=== PATIENT | female | born 1940 | race Caucasian/White ===

== ENCOUNTER 2020-07-28 12:22 | Observation (INO) ==
[2020-07-28] MEDS ORDERED: ONDANSETRON INJ 2 MG/ML 2 ML VIAL IV STA (12:36)
--- NOTE | 2020-07-28 12:38 | Emergency Department Note ---
Impression & Plan Vertigo, Acute hyperglycemia, Hypomagnesemia, Intractable nausea and vomiting ED Provider Note NAME: TRELL PRICE AGE: 80 SEX: F : 1940 ARRIVES VIA: Walk-In INFORMANT: Patient, the patient's friend ED PROVIDER(S): Chase Hess DO CHIEF COMPLAINT: Diplopia HPI: The patient is a 80-year-old female who is a type II diabetic as well as an oxygen requirement COPD patient who presented to the emergency department with diplopia. The patient states this began while she was driving approximately 1/2 to 1-hour prior to arrival. She denies having any fever. She has no chest pain. She denies having any headache. She is not been ill recently with fever. She denies having any abdominal pain but has significant nausea. She states initially the symptoms were worsened with opening her eyes and looking around. She states that the diplopia has since improved significantly. She is never had a history of stroke before. She denies having any ringing in her ears. She has had no recent trauma. She states her symptoms are moderately improved at this time. Her friend who is with her also gives some of the history and states that she was having significant difficulty walking when this occurred. She states that she was unable to walk without assistance. The patient herself describes bilateral weakness which is generalized. ROS: See above HPI for pertinent positives & negatives. A total of 10 systems reviewed and were otherwise negative. PAST MEDICAL HISTORY: See Below PAST SURGICAL HISTORY: See Below FAMILY HISTORY: See Below SOCIAL HISTORY: See Below HOME MEDICATIONS: See Below ALLERGIES: See Below VITALS: See Below PHYSICAL EXAMINATION: GENERAL: The patient is awake and alert. She is keeping her eyes closed. EYES: The conjunctivae are clear. The pupils are round and reactive. No nystagmus was elicited. EARS, NOSE, MOUTH AND THROAT: The nose is without any evidence of any deformity. There was mild cerumen impaction bilaterally. NECK: The neck is nontender and supple. RESPIRATORY: Diminished breath sounds are noted in the right lung field. There were scattered rhonchi in both upper lung bravo. There was no tachypnea or conversational dyspnea. CARDIOVASCULAR: Regular rate and rhythm noted there no murmurs rubs or gallops normal S1 normal S2. GASTROINTESTINAL: The abdomen is soft. Abdomen is nontender. MUSCULOSKELETAL/EXTREMITIES: There is no evidence of gross deformity full range of motion is noted in the hips and shoulders. SKIN: Trace pedal edema was noted bilaterally. NEUROLOGIC: Patient is awake alert and oriented x3. There was no facial droop noted. Speech was pressured but understandable. Patient is able to keep each leg off the bed for 5 seconds. Art History Professor strength was diminished but symmetric. MEDICAL DECISION MAKING: The patient is a 80-year-old female who presented to the emergency department with an acute onset of nausea and weakness. The patient complained of dizziness and appeared to be complaining of more vertigo symptoms. Because of her age and comorbidities further testing was obtained to ensure this was not a central nervous system cause for her vertigo. She initially complained of diplopia but this resolved prior to my evaluation. She did not have any unilateral weakness. She had no visual findings of nystagmus. The patient was treated for her nausea. She was reevaluated multiple times. She was also treated with magnesium replacement. I discussed the patient's laboratory and radiographic studies with her. I also discussed her case with the on-call [facility]. They have agreed to evaluate the patient in the emergency department for further management and disposition. Triage Nursing notes reviewed. Prior medical records reviewed Vital Signs: reviewed and remarkable for no significant abnormalities Differential diagnosis: Infection, dehydration, metabolic abnormality, hypo/hyperglycemia, electrolyte disturbance, anemia, hypoxia, cardiac sources, intracerebral event, toxicologic, neurologic, as well as other pathologies. ER treatment provided: See below Diagnostics interpreted by me: ECG: EKG was obtained in the emergency department. My interpretation is sinus rhythm at 72 bpm. First-degree AV block was noted. There was no PVCs noted. Nonspecific interventricular conduction delay was noted. No previous tracing was available for comparison. Cardiac Monitoring: An order was placed for continuous cardiac monitoring. The monitor shows a rate of 78 bpm with sinus rhythm. Laboratory studies: As stated above and show below. Imaging studies: See below Consultation(s): 1530: I discussed this case with Dr. Haines who is on-call for the [facility] group. He will evaluate the patient in the emergency department for further management. Past Med/Surg History Medical History (Updated 07/28/20 @ 15:27 by Luiz Haines MD) COPD (chronic obstructive pulmonary disease) Type 2 diabetes mellitus Social History (Updated 03/20/21 @ 12:38 by Chase Hess DO) Smoking Status: Former smoker Tobacco Type: Cigarettes Preferred Language: Turkish Feels Safe at Home: Yes Allergies Allergies Allergy/AdvReac Type Severity Reaction Status Date / Time No Known Allergies Allergy Unverified 07/28/20 13:57 Home Meds Home Medications Medication Instructions Recorded Confirmed albuterol sulfate [ProAir HFA] 1 inh INHALATION QID PRN 07/28/20 07/28/20 budesonide-formoterol [Symbicort] 2 puff INHALATION BID 07/28/20 07/28/20 diltiazem HCl 240 mg PO QAM 07/28/20 07/28/20 glimepiride [Amaryl] 2 mg PO QAM 07/28/20 07/28/20 levothyroxine [Synthroid] 25 mcg PO DAILYBB 07/28/20 07/28/20 lisinopril-hydrochlorothiazide 1 tab PO QAM 07/28/20 07/28/20 [Zestoretic] prednisone 40 mg PO QAM 07/28/20 07/28/20 propafenone 150 mg PO BID 07/28/20 07/28/20 simvastatin [Zocor] 20 mg PO HS 07/28/20 07/28/20 tiotropium bromide [Spiriva with 18 mcg INHALATION QAM 07/28/20 07/28/20 HandiHaler] Results & Data (ED) Vital Signs Vital Signs - 24 hr 07/28/20 12:23 07/28/20 13:10 07/28/20 13:13 Temperature 36.4 C L Temperature Source Oral Pulse Rate 81 67 67 Pulse Rate from SpO2 Sensor 68 67 Pulse Rhythm Regular Pulse Strength Normal Respiratory Rate 16 26 H 25 H Respiratory Effort / Characteristics Non-Labored Respiratory Depth Normal Respiratory Pattern Regular Blood Pressure 134/70 118/61 Blood Pressure Mean 91 80 Blood Pressure Position Sitting Pulse Oximetry 92 95 96 Oxygen Delivery Method Room Air Nasal Cannula Oxygen Flow Rate 3 Sepsis Recent Fever Within 48 Hours No Sepsis New/Unexplained Change in Mental Status N/A Sepsis Action Taken by Nursing No Action Required 07/28/20 13:30 07/28/20 14:00 07/28/20 14:30 Temperature Temperature Source Pulse Rate 67 69 68 Pulse Rate from SpO2 Sensor 67 69 69 Pulse Rhythm Pulse Strength Respiratory Rate 24 22 20 Respiratory Effort / Characteristics Respiratory Depth Respiratory Pattern Blood Pressure 121/65 130/71 110/65 Blood Pressure Mean 83 90 80 Blood Pressure Position Pulse Oximetry 98 100 100 Oxygen Delivery Method Oxygen Flow Rate 3 3 3 Sepsis Recent Fever Within 48 Hours Sepsis New/Unexplained Change in Mental Status Sepsis Action Taken by Nursing 07/28/20 15:00 07/28/20 15:30 Temperature Temperature Source Pulse Rate 71 78 Pulse Rate from SpO2 Sensor 72 77 Pulse Rhythm Pulse Strength Respiratory Rate 22 17 Respiratory Effort / Characteristics Respiratory Depth Respiratory Pattern Blood Pressure 123/68 119/65 Blood Pressure Mean 86 83 Blood Pressure Position Pulse Oximetry 100 100 Oxygen Delivery Method Nasal Cannula Nasal Cannula Oxygen Flow Rate 3 3 Sepsis Recent Fever Within 48 Hours Sepsis New/Unexplained Change in Mental Status Sepsis Action Taken by [facility] Medications Current Medication List: was personally reviewed by me Laboratory Data Attestation: I reviewed the patient's lab results. Result diagrams: 07/28/20 12:40 07/28/20 12:40 Lab Results 07/28/20 07/28/20 07/28/20 Range/Units 12:25 12:40 12:40 WBC 24.20 H (4.8-10.8) K/uL RBC 4.66 (4.2-5.4) M/uL Hgb 15.0 (12.0-16.0) g/dL POC Hgb (12.0-16.0) g/dl Hct 44.4 (37-47) % POC Hct (37-47) % MCV 95.3 (80-100) fL MCH 32.2 (25-34) pg MCHC 33.8 (32-36) g/dL RDW Std Deviation 45.6 (36.4-46.3) fL RDW Coeff of April 13.2 (11.5-14.5) % Plt Count 292 (130-400) K/uL MPV 11.3 H (7.4-10.4) fL Immature Gran % (Auto) 1.9 % Neut % (Auto) 76.7 % Lymph % (Auto) 13.0 % Sutter % (Auto) 7.5 % Eos % (Auto) 0.7 % Baso % (Auto) 0.2 % Neut # (Auto) 18.58 H (1.4-6.5) K/uL Lymph # (Auto) 3.14 (1.2-3.4) K/uL Sutter # (Auto) 1.81 H (0.11-0.59) K/uL Eos # (Auto) 0.17 (0-0.5) K/uL Baso # (Auto) 0.04 (0-0.2) K/uL Immature Gran # (Auto) 0.46 H (0.00-0.02) K/uL PT Cancelled INR Cancelled APTT Cancelled PTT Ratio Cancelled POC Sodium (135-144) mmol/L Sodium (136-145) mmol/L POC Potassium (3.3-5.0) mmol/L Potassium (3.5-5.1) mmol/L POC Chloride (101-112) mmol/L Chloride (98-107) mmol/L Carbon Dioxide (21-32) mmol/L POC Total CO2 (24-31) mmol/L Anion Gap (3-11) POC Anion Gap (16-25) mmol/L POC BUN (7-18) mg/dl BUN (7-18) mg/dl Creatinine (0.6-1.2) mg/dl POC Creatinine (0.6-1.3) mg/dl Est Cr Clr Drug Dosing Est GFR ( Amer) Est GFR (Non-Af Amer) BUN/Creatinine Ratio (10-20) Glucose (70-99) mg/dl POC Glucose 220 H (70-99) mg/dl POC Glucose (other) (70-99) mg/dl Calcium (8.5-10.1) mg/dl POC Ioniz Calcium Eleuterio (1.12-1.32) mmol/l Magnesium (1.8-2.4) mg/dl Total Bilirubin (0.2-1) mg/dl AST (15-37) U/L ALT (12-78) U/L Alkaline Phosphatase (45-117) U/L Troponin I (0-0.045) ng/ml Total Protein (6.4-8.2) gm/dl Albumin (3.4-5.0) gm/dl Globulin (2.5-4.0) gm/dl Albumin/Globulin Ratio (0.9-2) TSH (0.300-4.500) uIu/ml COVID-19 Eval Order SARS-CoV-2, RNA, NAAT (NEGATIVE) 07/28/20 07/28/2021 Range/Units 12:40 12:40 12:48 WBC (4.8-10.8) K/uL RBC (4.2-5.4) M/uL Hgb (12.0-16.0) g/dL POC Hgb 16.0 (12.0-16.0) g/dl Hct (37-47) % POC Hct 47 (37-47) % MCV (80-100) fL MCH (25-34) pg MCHC (32-36) g/dL RDW Std Deviation (36.4-46.3) fL RDW Coeff of April (11.5-14.5) % Plt Count (130-400) K/uL MPV (7.4-10.4) fL Immature Gran % (Auto) % Neut % (Auto) % Lymph % (Auto) % Sutter % (Auto) % Eos % (Auto) % Baso % (Auto) % Neut # (Auto) (1.4-6.5) K/uL Lymph # (Auto) (1.2-3.4) K/uL Sutter # (Auto) (0.11-0.59) K/uL Eos # (Auto) (0-0.5) K/uL Baso # (Auto) (0-0.2) K/uL Immature Gran # (Auto) (0.00-0.02) K/uL PT INR APTT PTT Ratio POC Sodium 136 (135-144) mmol/L Sodium 136 (136-145) mmol/L POC Potassium 3.8 (3.3-5.0) mmol/L Potassium 3.7 (3.5-5.1) mmol/L POC Chloride 96 L (101-112) mmol/L Chloride 100 (98-107) mmol/L Carbon Dioxide 28 (21-32) mmol/L POC Total CO2 31 (24-31) mmol/L Anion Gap 8.0 (3-11) POC Anion Gap 13.0 L (16-25) mmol/L POC BUN 16 (7-18) mg/dl BUN 14 (7-18) mg/dl Creatinine 1.07 (0.6-1.2) mg/dl POC Creatinine 0.7 (0.6-1.3) mg/dl Est Cr Clr Drug Dosing Not Reportable Est GFR ( Amer) 57.2 Est GFR (Non-Af Amer) 49.3 BUN/Creatinine Ratio 13.2 (10-20) Glucose 264 H (70-99) mg/dl POC Glucose (70-99) mg/dl POC Glucose (other) 267 H (70-99) mg/dl Calcium 9.6 (8.5-10.1) mg/dl POC Ioniz Calcium Eleuterio 1.26 (1.12-1.32) mmol/l Magnesium 1.6 L (1.8-2.4) mg/dl Total Bilirubin 0.5 (0.2-1) mg/dl AST 18 (15-37) U/L ALT 42 (12-78) U/L Alkaline Phosphatase 112 (45-117) U/L Troponin I < 0.015 (0-0.045) ng/ml Total Protein 6.8 (6.4-8.2) gm/dl Albumin 3.7 (3.4-5.0) gm/dl Globulin 3.1 (2.5-4.0) gm/dl Albumin/Globulin Ratio 1.2 (0.9-2) TSH 2.240 (0.300-4.500) uIu/ml COVID-19 Eval Order SARS-CoV-2, RNA, NAAT (NEGATIVE) 07/28/20 07/28/20 07/28/20 Range/Units 13:25 13:25 13:53 WBC (4.8-10.8) K/uL RBC (4.2-5.4) M/uL Hgb (12.0-16.0) g/dL POC Hgb (12.0-16.0) g/dl Hct (37-47) % POC Hct (37-47) % MCV (80-100) fL MCH (25-34) pg MCHC (32-36) g/dL RDW Std Deviation (36.4-46.3) fL RDW Coeff of April (11.5-14.5) % Plt Count (130-400) K/uL MPV (7.4-10.4) fL Immature Gran % (Auto) % Neut % (Auto) % Lymph % (Auto) % Sutter % (Auto) % Eos % (Auto) % Baso % (Auto) % Neut # (Auto) (1.4-6.5) K/uL Lymph # (Auto) (1.2-3.4) K/uL Sutter # (Auto) (0.11-0.59) K/uL Eos # (Auto) (0-0.5) K/uL Baso # (Auto) (0-0.2) K/uL Immature Gran # (Auto) (0.00-0.02) K/uL PT 10.6 INR 1.0 APTT < 20.0 L PTT Ratio 0.8 POC Sodium (135-144) mmol/L Sodium (136-145) mmol/L POC Potassium (3.3-5.0) mmol/L Potassium (3.5-5.1) mmol/L POC Chloride (101-112) mmol/L Chloride (98-107) mmol/L Carbon Dioxide (21-32) mmol/L POC Total CO2 (24-31) mmol/L Anion Gap (3-11) POC Anion Gap (16-25) mmol/L POC BUN (7-18) mg/dl BUN (7-18) mg/dl Creatinine (0.6-1.2) mg/dl POC Creatinine (0.6-1.3) mg/dl Est Cr Clr Drug Dosing Est GFR ( Amer) Est GFR (Non-Af Amer) BUN/Creatinine Ratio (10-20) Glucose (70-99) mg/dl POC Glucose (70-99) mg/dl POC Glucose (other) (70-99) mg/dl Calcium (8.5-10.1) mg/dl POC Ioniz Calcium Eleuterio (1.12-1.32) mmol/l Magnesium (1.8-2.4) mg/dl Total Bilirubin (0.2-1) mg/dl AST (15-37) U/L ALT (12-78) U/L Alkaline Phosphatase (45-117) U/L Troponin I (0-0.045) ng/ml Total Protein (6.4-8.2) gm/dl Albumin (3.4-5.0) gm/dl Globulin (2.5-4.0) gm/dl Albumin/Globulin Ratio (0.9-2) TSH (0.300-4.500) uIu/ml COVID-19 Eval [facility] SARS-CoV-2, RNA, NAAT NEGATIVE (NEGATIVE) Administered Medications Sodium Chloride (Nss 1000ml) 1,000 mls @ 50 mls/hr IV .Q20H ISHMAEL Stop: 08/27/20 12:44 Last Infusion: 07/28/20 14:59 Dose: 0 mls/hr Documented by: [id number] Admin: 07/28/20 12:57 Dose: 50 mls/hr Documented by: [id number] Discontinued Medications Magnesium Sulfate/Dextrose (Magnesium Sulfate / D5w) 1 gm in 100 mls @ 100 mls/hr IV Q1H ISHMAEL Stop: 07/28/20 15:44 Last Infusion: 07/28/20 15:54 Dose: 0 mls/hr Documented by: [id number] Admin: 07/28/20 15:28 Dose: 100 mls/hr Documented by: [id number] Infusion: 07/28/20 15:07 Dose: 0 mls/hr Documented by: [id number] Admin: 07/28/20 14:04 Dose: 100 mls/hr Documented by: [id number] Promethazine HCl (Phenergan) 6.25 mg in 50.25 mls @ 201 mls/hr IV NOW STA Stop: 07/28/20 14:51 Last Infusion: 07/28/20 15:24 Dose: 0 mls/hr Documented by: [id number] Admin: 07/28/20 15:09 Dose: 201 mls/hr Documented by: [id number] Ioversol (Optiray 320 125ml) 120 ml IV ONCE ONE Stop: 07/28/20 13:11 Last Admin: 07/28/20 13:11 Dose: 120 ml Documented by: [id number] Ondansetron HCl (Ondansetron Inj 2 Mg/Ml 2 Ml Vial) 4 mg IV NOW STA Stop: 07/28/20 12:37 Last Admin: 07/28/20 12:57 Dose: 4 mg Documented by: [id number] Imaging Data Radiologist's Impression: Patient: TRELL PRICE Admit Date: 07/28/20 MR#: [id number] Address1: [facility] [address] [address] [place] ID:[id number] Address2: Date: 1940 [facility] Zip: [place] [address] Age: 80 Location: ED Sex: F Room/Bed: Att Phy: Diagnosis: SOB,CONFUSION Halima Phy: PCP,NO Service Date: 07/28/20 [facility] Phy: Interpreting Phy: Dillan Villa MD Admit Phy: Ordering Phy: Chase Hess DO cc: ~ HEAD & NECK CTA HISTORY: Sudden onset blurred vision. Stroke Like Symptoms TECHNIQUE: Multiaxial CT images of the head were performed following the in travenous administration of contrast to evaluate the major cerebral vessels. Multiaxial CT images of the neck were also performed following the intravenous administration of contrast to evaluate the major cervical vessels. Maximum intensity projection images were also obtained. A dose lowering technique was utilized adhering to the principles of ALARA. COMPARISON: None. FINDINGS: There is no mass, hematoma, midline shift, or acute infarct. Visualized intracranial internal carotid arteries, distal vertebral arteries, and basilar artery are widely patent. There is no significant stenosis, occlusion, or aneurysm seen within the bilateral ACAs, MCAs, or senior energy trader. Moderate calcified plaque within the bilateral carotid siphons. The major dural venous sinuses appear patent. The aortic arch and proximal great vessels are widely patent. There is no significant stenosis, occlusion, or dissection identified within the bilateral common carotid, right internal carotid, or vertebral arteries. Mild emphysema. Mild calcified plaque within the right carotid bifurcation and severe calcified plaque within the left carotid bulb. This results in moderate to severe multifocal stenosis within the proximal 1 cm of the left internal carotid artery with up to 90% focal stenosis. IMPRESSION: 1. No significant stenosis, occlusion, or aneurysm within the [place]. 2. Moderate to severe multifocal stenosis within the proximal 1 cm of the left internal carotid artery due to the calcified plaque at this location. The stenosis measures up to 90%. 3. Otherwise, no significant stenosis or dissection within the bilateral common or right internal carotid arteries. ACT 112: Negative or not required by law. Electronically signed by: Dillan Villa M.D. 07/28/2020 1:23 PM Dictated: 07/28/201317 Transcribed: 07/28/201317 Patient: TRELL PRICE Admit Date: 07/28/20 MR#: [id number] Address1: [facility] RY TURNER Acct ID:[id number] Address2: Date: 1940 [facility] Zip: [place] [address] Age: 80 Location: ED Sex: F Room/Bed: Att Phy: Diagnosis: SOB,CONFUSION Halima Phy: PCP,NO Service Date: 07/28/20 Fam Phy: Interpreting Phy: Dillan Villa MD Admit Phy: Ordering Phy: Chase Hess DO cc: ~ HEAD CT NONCONTRAST CT DOSE: HISTORY: Sudden onset blurred vision. Stroke Like Symptoms TECHNIQUE: Multiaxial CT images of the head were performed without the use of intravenous contrast. Automated exposure control was utilized for this study. A dose lowering technique was utilized adhering to the principles of ALARA. Comparison: None. Findings: There is a retention cyst within the left sphenoid sinus. No fluid levels within the paranasal sinuses. The mastoid air cells are clear. The calvarium and skull base are intact. There is no mass, hematoma, midline shift, acute infarct. White matter hypodensity is nonspecific but suggestive of microvascular ischemic change. The ventricles and sulci demonstrate mild age- related involutional changes. Impression: No acute intracranial abnormality. ACT 112: Negative or not required by law. Electronically signed by: Dillan Villa M.D. 07/28/2020 1:17 PM Dictated: 07/28/20 1311 Transcribed: 07/28/20 1311 Patient: TRELL PRICE Admit Date: 07/28/20 MR#: [id number] Address1: [address] [place] [address] Acct ID:[id number] Address2: Date: 1940 [facility] Zip: [place] [address] Age: 80 Location: ED Sex: F Room/Bed: Att Phy: Diagnosis: SOB,CONFUSION Halima Phy: PCP,NO Service Date: 07/28/20 [place] Phy: Interpreting Phy: Dillan Villa MD Admit Phy: Ordering Phy: Chase Hess DO cc: ~ XR chest 1V portable HISTORY: Sudden onset of blurry vision. Stroke Like Symptoms COMPARISON: None. FINDINGS: The lungs are mildly hyperexpanded. No pleural effusions. No pneumothorax. The heart is normal in size. No focal lung consolidations to suggest pneumonia. No evidence for pulmonary edema. There is mild emphysema. Slightly rotated study. IMPRESSION: No acute process. ACT 112: Negative or not required by law. Electronically signed by: Dillan Villa M.D. 07/28/2020 2:20 PM Dictated: 07/28/20 1419 Transcribed: 07/28/201418 Discharge Plan Visit Data Chief Complaint: Illness Stated Complaint: SOB,CONFUSION ED Provider: Chase Hess Discharge Problem: Vertigo, Acute hyperglycemia, Hypomagnesemia, Intractable nausea and vomiting Patient Disposition: Admitted As Inpatient Condition: Good Discharge Instructions Interventions: ED Discharge Assessment Last Done: 07/28/20 16:35
[2020-07-28 12:52] LABS: Basophils # (auto) 0.04 K/uL (0-0.2); Basophils % (auto) 0.2 %; Eosinophils # (auto) 0.17 K/uL (0-0.5); Eosinophils % (auto) 0.7 %; Hematocrit (blood only) 44.4 % (37-47); Immature Granulocytes # (auto) 0.46 K/uL (0.00-0.02); Immature Granulocytes % (auto) 1.9 %; Lymphocytes # (auto) 3.14 K/uL (1.2-3.4); Mean Corpuscular Hemoglobin 32.2 pg (25-34); Mean Corpuscular Hgb Conc 33.8 g/dL (32-36); Mean Corpuscular Volume 95.3 fL (80-100); Mean Platelet Volume 11.3 fL (7.4-10.4); Monocytes # (auto) 1.81 K/uL (0.11-0.59); Monocytes % (auto) 7.5 %; Neutrophils # (auto) 18.58 K/uL (1.4-6.5); Neutrophils % (auto) 76.7 %; Platelet Count 292 K/uL (130-400); RDW Coefficient of Variation 13.2 % (11.5-14.5); RDW Standard Deviation 45.6 fL (36.4-46.3); Red Blood Count 4.66 M/uL (4.2-5.4)
[2020-07-28] MEDS: SODIUM CHLORIDE 0.9% 1000ML 1,000 ML IV SCH (12:57)
[2020-07-28 12:59] LABS: iSTAT Creatinine 0.7 mg/dl (0.6-1.3); iSTAT Ionized Calcium 1.26 mmol/l (1.12-1.32); iSTAT Potassium 3.8 mmol/L (3.3-5.0)
[2020-07-28 13:10] LABS: Alanine Aminotransferase 42 U/L (12-78); Albumin Level 3.7 gm/dl (3.4-5.0); Aspartate Aminotransferase 18 U/L (15-37); BUN Creatinine Ratio 13.2 (10-20); Blood Urea Nitrogen 14 mg/dl (7-18); Calcium 9.6 mg/dl (8.5-10.1); Carbon Dioxide 28 mmol/L (21-32); Chloride 100 mmol/L (98-107); Est GFR (African American) 57.2; Est GFR (Non-African American) 49.3; Glucose 264 mg/dl (70-99); Magnesium 1.6 mg/dl (1.8-2.4); Potassium 3.7 mmol/L (3.5-5.1); Sodium 136 mmol/L (136-145)
[2020-07-28] MEDS ORDERED: OPTIRAY 320 125ml IV ONE (13:10)
[2020-07-28 13:15] LABS: Albumin Globulin Ratio 1.2 (0.9-2); Alkaline Phosphatase 112 U/L (45-117); Bilirubin,Total 0.5 mg/dl (0.2-1); Globulin 3.1 gm/dl (2.5-4.0); Total Protein 6.8 gm/dl (6.4-8.2); Troponin I < 0.015 ng/ml (0-0.045)
--- NOTE | 2020-07-28 13:18 | CT Scan Report ---
HEAD CT NONCONTRAST CT DOSE: HISTORY: Sudden onset blurred vision. Stroke Like Symptoms TECHNIQUE: Multiaxial CT images of the head were performed without the use of intravenous contrast. A utomated exposure control was utilized for this study. A dose lowering technique was utilized adheri ng to the principles of ALARA. Comparison: None. Findings: There is a retention cyst within the left sphenoid sinus. No fluid levels within the [place] sc[place] sinuses. The mastoid air cells are clear. The calvarium and skull base are intact. There is no ma ss, hematoma, midline shift, acute infarct. White matter hypodensity is nonspecific but suggestive of microvascular ischemic change. The ventricles and sulci demonstrate mild age-related involutional ch anges. Impression: No acute intracranial abnormality. ACT 112: Negative or not required by law. Electronically signed by: Dillan Villa M.D. 07/28/2020 1:17 PM
--- NOTE | 2020-07-28 13:24 | CT Scan Report ---
HEAD & NECK CTA HISTORY: Sudden onset blurred vision. Stroke Like Symptoms TECHNIQUE: Multiaxial CT images of the head were performed following the intravenous administration o f contrast to evaluate the major cerebral vessels. Multiaxial CT images of the neck were also perform ed following the intravenous administration of contrast to evaluate the major cervical vessels. Maxim um intensity projection images were also obtained. A dose lowering technique was utilized adhering to the principles of ALARA. COMPARISON: None. FINDINGS: There is no mass, hematoma, midline shift, or acute infarct. Visualized intracranial internal carotid arteries, distal vertebral arteries, and basilar artery are widely patent. There is no significant s tenosis, occlusion, or aneurysm seen within the bilateral ACAs, MCAs, or tearoom host. Moderate calcified hussein que within the bilateral carotid siphons. The major dural venous sinuses appear patent. The aortic arch and proximal great vessels are widely patent. There is no significant stenosis, occ lusion, or dissection identified within the bilateral common carotid, right internal carotid, or vert ebral arteries. Mild emphysema. Mild calcified plaque within the right carotid bifurcation and severe calcified plaque within the left carotid bulb. This results in moderate to severe multifocal stenosi s within the proximal 1 cm of the left internal carotid artery with up to 90% focal stenosis. IMPRESSION: 1. No significant stenosis, occlusion, or aneurysm within the [place] of [place]. 2. Moderate to severe multifocal stenosis within the proximal 1 cm of the left internal carotid arter y due to the calcified plaque at this location. The stenosis measures up to 90%. 3. Otherwise, no significant stenosis or dissection within the bilateral common or right internal car otid arteries. ACT 112: Negative or not required by law. Electronically signed by: Dillan Villa M.D. 07/28/2020 1:23 PM
--- NOTE | 2020-07-28 13:24 | CT Scan Report ---
HEAD & NECK CTA HISTORY: Sudden onset blurred vision. Stroke Like Symptoms TECHNIQUE: Multiaxial CT images of the head were performed following the intravenous administration o f contrast to evaluate the major cerebral vessels. Multiaxial CT images of the neck were also perform ed following the intravenous administration of contrast to evaluate the major cervical vessels. Maxim um intensity projection images were also obtained. A dose lowering technique was utilized adhering to the principles of ALARA. COMPARISON: None. FINDINGS: There is no mass, hematoma, midline shift, or acute infarct. Visualized intracranial internal carotid arteries, distal vertebral arteries, and basilar artery are widely patent. There is no significant s tenosis, occlusion, or aneurysm seen within the bilateral ACAs, MCAs, or kick press setter. Moderate calcified hussein que within the bilateral carotid siphons. The major dural venous sinuses appear patent. The aortic arch and proximal great vessels are widely patent. There is no significant stenosis, occ lusion, or dissection identified within the bilateral common carotid, right internal carotid, or vert ebral arteries. Mild emphysema. Mild calcified plaque within the right carotid bifurcation and severe calcified plaque within the left carotid bulb. This results in moderate to severe multifocal stenosi s within the proximal 1 cm of the left internal carotid artery with up to 90% focal stenosis. IMPRESSION: 1. No significant stenosis, occlusion, or aneurysm within the [place] of [place]. 2. Moderate to severe multifocal stenosis within the proximal 1 cm of the left internal carotid arter y due to the calcified plaque at this location. The stenosis measures up to 90%. 3. Otherwise, no significant stenosis or dissection within the bilateral common or right internal car otid arteries. ACT 112: Negative or not required by law. Electronically signed by: Dillan Villa M.D. 07/28/2020 1:23 PM
[2020-07-28] MEDS: MAGNESIUM SULFATE / D5W 1 GM/100 ML BAG IV SCH ×2 (14:04→15:28)
[2020-07-28 14:10] LABS: Partial Thromboplastin Ratio 0.8; Prothrombin Time 10.6 Seconds (9.0-12.0)
[2020-07-28 14:12] LABS: Partial Thromboplastin Time < 20.0 Seconds (21.0-31.0)
--- NOTE | 2020-07-28 14:22 | XRay Report ---
XR chest 1V portable HISTORY: Sudden onset of blurry vision. Stroke Like Symptoms COMPARISON: None. FINDINGS: The lungs are mildly hyperexpanded. No pleural effusions. No pneumothorax. The heart is nor mal in size. No focal lung consolidations to suggest pneumonia. No evidence for pulmonary edema. Ther e is mild emphysema. Slightly rotated study. IMPRESSION: No acute process. ACT 112: Negative or not required by law. Electronically signed by: Dillan Villa M.D. 07/28/2020 2:20 PM
[2020-07-28] MEDS ORDERED: PROMETHAZINE 6.25 MG/50.25 ML BAG IV STA (14:37)
--- NOTE | 2020-07-28 15:27 | History & Physical Report ---
Date of Service July 28, 2020 Assessment & Plan (1) Diplopia: Sudden onset and improvement concerning for TIA - symptoms resolved in about 1 hour. Currently asymptomatic therefore not tPA candidate. Concerning for TIA given patient description of diplopia although lightheadedness points towards more dehydration. ABCD2 score 4 - moderate risk Allow permissive hypertension - see Rx under HTN ASA 324mg PO now, then 81mg PO daily Continue simvastatin pending lipid panel in AM HbA1C with AM labs - diabetes management as below. TTE Resolved symptoms - no need for PT/OT/speech evals Consult neurology (2) Left carotid artery stenosis: Start ASA, continue simvastatin as above. Unclear whether symptomatic from this. Will defer vascular consult to neurology if felt to be necessary otherwise she can follow up in [place] regarding this. (3) Acute dehydration: Dry mucus membranes and elevated in setting of HCTZ use and glucosuria. ?only cause of her symptoms above. IV fluids Repeat BMP in AM (4) Paroxysmal atrial fibrillation: One episode previously many years ago in context of COPD exacerbation therefore not on anticoagulation Monitor for recurrence on telemetry She should have 30 day event monitor on discharge if no a. fib seen on telemetry (5) Hypertension: (6) Type 2 diabetes mellitus: HbA1C 11 around three months ago per patient recollection. Will repeat with AM labs. Hold glimepiride. Consult pharmacy for glycemic control with basal/bolus insulin (7) Hypomagnesemia: Mg level 1.6. Mg sulphate 2g IV given in ER Start Mg Ox 400mg PO QAM Repeat in AM (8) Olecranon bursitis, right elbow: 2 weeks of this. Does not appear to be infected as no surrounding skin changes. Follow up with PCP in [place]. 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 Sudden onset occurred while she was driving the car. She initially noticed double vision with both eyes open and resolved when she would close either eye. She managed to pull to the side of the road and got out of the car at which point she started feeling lightheaded (denies room spinning sensation) with nausea. She told her friend she just didn't feel right so her friend drove her to the emergency room. She feels the diplopia lasted for about 1 hour. She denies any lateralized weakness, change in speech or hearing. No infective symptoms such as sinus pain, shortness of breath, cough, fever, chills, urinary symptoms. In the ER she continued to feel nauseous which was resolved with promethazine. She has significant cardiovascular risk factors including former smoker, hypertension, hyperlipidemia and uncontrolled T2DM (most recent HbA1C 11 prior to starting treatment). In the ER CT head and angiograms where concerning for left carotid artery stenosis. She was referred to medicine for admission and ongoing management of vertigo (although patient denies any room spinning sensation to me), vomiting and hypomagnesemia. Her symptoms have all resolved on admission. Allergies Allergy/AdvReac Type Severity Reaction Status Date / Time No Known Allergies Allergy Unverified 07/28/20 13:57 Home Medications Medication Instructions Recorded Confirmed Type albuterol sulfate [ProAir HFA] 1 inh INHALATION QID PRN 07/28/20 07/28/20 History budesonide-formoterol [Symbicort] 2 puff INHALATION BID 07/28/20 07/28/20 History diltiazem HCl 240 mg PO QAM 07/28/20 07/28/20 History glimepiride [Amaryl] 2 mg PO QAM 07/28/20 07/28/20 History levothyroxine [Synthroid] 25 mcg PO DAILYBB 07/28/20 07/28/20 History lisinopril-hydrochlorothiazide 1 tab PO QAM 07/28/20 07/28/20 History [Zestoretic] prednisone 40 mg PO QAM 07/28/20 07/28/20 History propafenone 150 mg PO BID 07/28/20 07/28/20 History simvastatin [Zocor] 20 mg PO HS 07/28/20 07/28/20 History tiotropium bromide [Spiriva with 18 mcg INHALATION QAM 07/28/20 07/28/20 History HandiHaler] Past Med/Surg History Medical History Chronic respiratory failure with hypoxia COPD (chronic obstructive pulmonary disease) Hypertension Paroxysmal atrial fibrillation Type 2 diabetes mellitus Surgical History History of cataract surgery Social History Smoking Status: Former smoker Tobacco Type: Cigarettes Age Quit Using Tobacco: 70; packs per day: 1; Hx Alcohol Use: Yes Alcohol type: hard liquor Hx Substance Use: No Preferred Language: [place] Communication Ability: Effective 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 Beliefs That Will Affect Care: None Current Living Situation: Alone Feels Safe at Home: Yes Assistive Devices: Oxygen - at Night Review of Systems Review of Systems: All systems reviewed & are unremarkable except as noted in HPI & below Physical Exam Constitutional: WD/WN, vitals as above Eyes: PERRL, conjunctivae normal, anicteric sclerae EOM intact bilaterally (without diplopia); no nystagmus ENMT: external ear and nose normal, oropharynx normal Neck: trachea midline Respiratory: normal respiratory effort, lungs clear to auscultation Cardiovascular: RRR, no murmur, no edema Gastrointestinal (Abdomen): normal bowel sounds, soft, nontender, no hepatosplenomegaly Musculoskeletal: no cyanosis or clubbing, extremities motor strength 5/5 Skin: no rashes, warm and dry Neurologic: moves all extremities and awake; not confused Motor/Sensory: no tremor and no pronator drift Cranial Nerves: PERRL, EOM intact bilaterally, normal facial strength, tongue midline, normal hearing, able to rotate head bilaterally, able to elevate shoulders bilaterally, no nystagmus and symmetric palate elevation Psychiatric: A+Ox3, euthymic affect Results & Data Results & Data ([facility]) Vital Signs (Past 12 Hours) Vital Signs Temp Pulse Resp BP Pulse Ox 07/28/20 15:00 71 22 123/68 100 07/28/20 14:30 68 20 110/65 100 07/28/20 14:00 69 22 130/71 100 07/28/20 13:30 67 24 121/65 98 07/28/20 13:13 67 25 H 96 07/28/20 13:10 67 26 H 118/61 95 07/28/20 12:23 36.4 C L 81 16 134/[address] NONCONTRAST Impression: No acute intracranial abnormality. HEAD & NECK CTA IMPRESSION: 1. No significant stenosis, occlusion, or aneurysm within the [place] of [place]. 2. Moderate to severe multifocal stenosis within the proximal 1 cm of the left internal carotid artery due to the calcified plaque at this location. The stenosis measures up to 90%. 3. Otherwise, no significant stenosis or dissection within the bilateral common or right internal carotid arteries. ECG Rhythm: normal sinus Findings: + other (Right axis deviation, nonspecific intraventricular conduction block) and + 1st degree AV block; no acute ischemic change Comparison ECG Date: no prior available Code Status & VTE Plan Code Status No intubation, ventilation or chest compressions. All other interventions ok to give. VTE Prophylaxis Plan VTE Prophylaxis will be ordered: Yes Reason for no VTE drug order: Treatment not indicated PG Care Time/CCT Total # of Minutes Spent Total Time Spent with Patient: Total time spent is greater than 50% in coordination of care (as documented) at patient's floor/unit and/or counseling patient: Coding Level of Care Code 27069 OBS Care - Level 3 Diagnoses Diplopia H53.2 Left carotid artery stenosis I65.22 Acute dehydration E86.0 Paroxysmal atrial fibrillation I48.0 Hypertension I10 Hypertension type: essential hypertension Type 2 diabetes mellitus E11.9 Hypomagnesemia E83.42 Olecranon bursitis, right elbow M70.21 COPD (chronic obstructive pulmonary disease) J44.9 Chronic respiratory failure with hypoxia J96.11 DVT prophylaxis Z29.9 (1) Hypertension Hypertension type: essential hypertension Qualified Code(s): I10 - Essential (primary) hypertension
[2020-07-28] MEDS ORDERED: ALUMINUM/MAGNESIUM SUSP 30 ML UDC PO PRN (16:47)
[2020-07-28] MEDS ORDERED: ACETAMINOPHEN 325 MG TAB PO PRN (16:47)
[2020-07-28] MEDS ORDERED: ONDANSETRON INJ 2 MG/ML 2 ML VIAL IV PRN (16:47)
--- NOTE | 2020-07-28 16:49 | Magnetic Resonance Report ---
Brain MRI WITHOUT CONTRAST HISTORY: Sudden onset vertigo, possible diplopia r/o CVA TECHNIQUE: Multiplanar multisequence MRI of the brain was performed without the use of contrast. COMPARISON STUDY: Head CT 07/28/2020. FINDINGS: There is no mass, hematoma, midline shift, or acute infarct. The paranasal sinuses are eve r. The mastoid air cells are clear. The ventricles and sulci demonstrate mild age-related involutiona l changes. Patchy and scattered foci of T2 hyperintensity seen within the periventricular and subcort ical white matter are nonspecific but suggestive of mild to moderate microvascular ischemic changes. The major vascular flow voids at the skull base are well-maintained. Evidence for bilateral lens repl acement. The optic nerves are normal and course and caliber. There is a 2 cm retention cyst within th e left sphenoid sinus. IMPRESSION: No acute intracranial abnormality. Patchy and scattered foci of T2 hyperintensity seen within the per iventricular and subcortical white matter are nonspecific but favor mild to moderate microvascular is chemic change. ACT 112: Negative or not required by law. Electronically signed by: Dillan Villa M.D. 07/28/2020 4:48 PM
[2020-07-28 17:31] LABS: Appearance Urine Clear (Clear); Bilirubin Urine Negative (Negative); Blood Urine Negative (Negative); Color Urine Yellow; Glucose Urine UA 3+ (Negative); Ketones Urine Trace (Negative); Leukocyte Esterase Urine Negative (Negative); Nitrite Urine Negative (Negative); Protein Urine Negative (Negative); Specific Gravity Urine > 1.045 (1.000-1.030); Urobilinogen Urine Negative (Negative)
[2020-07-28] MEDS ORDERED: ASPIRIN 81 MG CHEW PO STA (20:13)
[2020-07-28] MEDS ORDERED: PHARMACY GLYCEMIC MGMT CONSULT PRN (20:22)
[2020-07-28] MEDS ORDERED: GLUCOSE 40% GEL 15 GM TUBE PO PRN (20:30)
[2020-07-28] MEDS ORDERED: CARBOHYDRATES FOR HYPOGLYCEMIA PO PRN (20:30)
[2020-07-28] MEDS ORDERED: GLUCOSE 10 TABS/TUBE PO PRN (20:30)
[2020-07-28] MEDS ORDERED: GLUCAGON FOR INJ 1 MG VIAL IM PRN (20:30)
[2020-07-28] MEDS ORDERED: DEXTROSE 50% 50 ML SYRINGE IV PRN (20:30)
[2020-07-28] MEDS ORDERED: PHARMACIST DISCHARGE MED REC CONSULT PRN (20:33)
[2020-07-28] MEDS ORDERED: SIMVASTATIN 20 MG TAB PO SCH (21:00)
[2020-07-28] MEDS: PROPAFENONE HCL 150 MG TABLET PO SCH (21:28)
[2020-07-28] MEDS: FLUTICASONE/VILANTEROL 100/25MCG 14 PUFFS/INHALER INH SCH (21:31)
[2020-07-28] MEDS: INSULIN ASPART 100 UNITS/ML 3 ML PEN SC SCH (21:34)
[2020-07-28] MEDS ORDERED: SODIUM CHLORIDE 0.9% 1000ML 1,000 ML IV ONE (23:33)
[2020-07-29] MEDS: SODIUM CHLORIDE 0.9% 1000ML 1,000 ML IV SCH ×2 (02:39→10:22)
[2020-07-29 06:14] LABS: Basophils # (auto) 0.03 K/uL (0-0.2); Basophils % (auto) 0.3 %; Eosinophils # (auto) 0.21 K/uL (0-0.5); Eosinophils % (auto) 2.1 %; Hematocrit (blood only) 37.6 % (37-47); Hemoglobin 12.4 g/dL (12.0-16.0); Immature Granulocytes # (auto) 0.17 K/uL (0.00-0.02); Immature Granulocytes % (auto) 1.7 %; Lymphocytes # (auto) 1.69 K/uL (1.2-3.4); Lymphocytes % (auto) 16.7 %; Mean Corpuscular Volume 96.9 fL (80-100); Mean Platelet Volume 10.8 fL (7.4-10.4); Monocytes % (auto) 9.9 %; Neutrophils # (auto) 7.04 K/uL (1.4-6.5); Neutrophils % (auto) 69.3 %; Platelet Count 196 K/uL (130-400); RDW Coefficient of Variation 13.4 % (11.5-14.5); RDW Standard Deviation 47.7 fL (36.4-46.3); Red Blood Count 3.88 M/uL (4.2-5.4); White Blood Count 10.14 K/uL (4.8-10.8)
[2020-07-29] MEDS ORDERED: LEVOTHYROXINE SODIUM 25 MCG TABLET PO SCH (06:30)
[2020-07-29 06:39] LABS: BUN Creatinine Ratio 13.3 (10-20); Creatinine Clr Calc Pharmacy 52.3 ml/min; Est GFR (African American) 96.4; Est GFR (Non-African American) 83.2; Magnesium 1.9 mg/dl (1.8-2.4); Potassium 3.8 mmol/L (3.5-5.1)
[2020-07-29] MEDS: PROPAFENONE HCL 150 MG TABLET PO SCH (07:47)
[2020-07-29] MEDS: FLUTICASONE/VILANTEROL 100/25MCG 14 PUFFS/INHALER INH SCH (07:51)
[2020-07-29] MEDS: INSULIN ASPART 100 UNITS/ML 3 ML PEN SC SCH ×2 (08:05→12:04)
--- NOTE | 2020-07-29 08:25 | Hospitalist Progress Note ---
Date of Service July 29, 2020 Assessment & Plan Admission and Anticipated Discharge Date Admission Date: July 28, 2020 Results & Data Results & Data ([facility]) Vital Signs (Past 12 Hours) Vital Signs Temp Pulse Pulse Resp BP Pulse Ox 07/29/20 07:31 36.7 C 77 16 110/61 100 07/29/20 03:21 36.4 C L 80 16 118/64 100 07/29/20 00:00 83 07/28/20 23:19 36.5 C 82 17 97/60 L 97
[2020-07-29] MEDS ORDERED: UMECLIDINIUM BROMIDE 62.5MCG/BLISTER 7 PUFFS/INHALER INH SCH (09:00)
[2020-07-29] MEDS ORDERED: predniSONE 20 MG TAB PO SCH (09:00)
[2020-07-29] MEDS ORDERED: dilTIAZem HCL 240 MG CAPCR PO SCH (09:00)
[2020-07-29] MEDS ORDERED: ASPIRIN 81 MG ECTAB PO SCH (09:00)
[2020-07-29] MEDS ORDERED: MAGNESIUM OXIDE 400 MG TAB PO SCH (09:00)
--- NOTE | 2020-07-29 10:07 | Electrocardiogram Report ---
Test Reason : Blood Pressure : / mmHG Vent. Rate : 072 BPM Atrial Rate : 072 BPM P-R Int : 260 ms QRS Dur : 136 ms QT Int : 470 ms P-R-T Axes : 083 121 059 degrees QTc Int : 514 ms Sinus rhythm with 1st degree A-V block Right bundle branch block Left posterior fascicular block Abnormal ECG No previous ECGs available Confirmed by Jason Archibald ([id number]) on 07/29/2020 10:07:11 AM Referred By: Confirmed By:Jason Archibald
--- NOTE | 2020-07-29 11:09 | Neurology Consultation ---
Date of Consultation July 29, 2020 Assessment & Plan (1) TIA (transient ischemic attack): (2) Diplopia: (3) Left carotid artery stenosis: patient has a history of new onset double vision July 28 lasting approximately an hour and then resolved. Currently she has no focal neurologic findings, meningeal signs, or encephalopathy. There have been no recurrence of symptoms. this event is consistent with a transient ischemic attack. the etiology of this event is not entirely clear. Even though she has a significant carotid stenosis on the left I would not predict that a small embolus from the left carotid artery would create acute double vision. This would most likely be a posterior fossa small vessel ischemic event. The rest of her CT angiography was unremarkable. MRI of the brain showed no acute stroke but she does have moderate diffuse old small vessel ischemia. She has significant stroke risk factors including her history of cigarette smoking, hypertension, and diabetes ( from steroids). Although she had an episode of atrial fibrillation in the past, she has been in normal sinus rhythm since admission. Recommendations: 1. initiate clopidogrel 75 milligrams daily instead of aspirin. 2. Awaiting echocardiogram 3. the patient is already on simvastatin 20. This could be increased but I do not believe she has a high dose statin candidate 4. there is no indication for anticoagulation at this time. She should follow off after she gets home with a vascular surgeon because of the left carotid stenosis. Overall, I spent a total of 60 minutes with this case including review of records, review of MRI films, direct evaluation patient bedside, and discussion of the case with the patient and RN at bedside and Dr. Bowman, including differential diagnosis and treatment options. History of Present Illness Reason for Consultation: Patient is a 80-year-old, who I was asked to see at the request of Dr. Haines, for neurologic consultation regarding Diplopia and TIA versus stroke. Requesting Physician: Dr. 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 She quit cigarettes 10 years ago. She has no history of heart disease , although 4 years ago she had an episode of atrial fibrillation with no recurrence since. The patient was visiting a friend ( she is from the [place] area) and they were out driving when approximately noon time July 28 she had the sudden onset of diplopia. When she closed 1 eye or the other she had no double vision. It was only with both eyes opened and the double vision was straight ahead. She did not test anything else with the direction of the double vision. After a few minutes she got out of the car and noted that her balance was poor but had no weakness or numbness. Her speech and mentation were normal. She had some diaphoresis and significant nausea. They drove to the emergency room. double vision lasted about 60 minutes or so and then completely resolved and has not recurred since. She arrived to the emergency room July 28 at 1223 with a temperature of 36.4, pulse 81 and regular, respiratory rate 16, blood pressure 134/70, and O2 saturation 92 percent. Her double vision was gone by the time she came to the to emergency room . She had no other focal neurologic findings or problems although she had nausea which responded to Phenergan. CBC showed a white count of 24 and Chem profile showed a glucose of 220. TSH was normal at 2.2 and otherwise her labs were unremarkable. CT scan of the head showed no acute changes. CT angiography of the head neck was remarkable for some proximal left internal carotid artery stenosis of about 90 percent. MRI of the brain showed moderate generalized atrophy and old small vessel ischemic disease in the white matter and no acute stroke. The patient has remained in normal sinus rhythm since admission and has had no new symptoms or problems. Triglycerides 189 and total cholesterol 132. hemoglobin A1c is pending. Allergies Allergy/AdvReac Type Severity Reaction Status Date / Time No Known Allergies Allergy Unverified 07/28/20 13:57 Home Medications Medication Instructions Recorded Confirmed Type albuterol sulfate [ProAir HFA] 1 inh INHALATION QID PRN 07/28/20 07/28/20 History budesonide-formoterol [Symbicort] 2 puff INHALATION BID 07/28/20 07/28/20 History diltiazem HCl 240 mg PO QAM 07/28/20 07/28/20 History glimepiride [Amaryl] 2 mg PO QAM 07/28/20 07/28/20 History levothyroxine [Synthroid] 25 mcg PO DAILYBB 07/28/20 07/28/20 History lisinopril-hydrochlorothiazide 1 tab PO QAM 07/28/20 07/28/20 History [Zestoretic] prednisone 40 mg PO QAM 07/28/20 07/28/20 History propafenone 150 mg PO BID 07/28/20 07/28/20 History simvastatin [Zocor] 20 mg PO HS 07/28/20 07/28/20 History tiotropium bromide [Spiriva with 18 mcg INHALATION QAM 07/28/20 07/28/20 History HandiHaler] Patient History Medical History Chronic respiratory failure with hypoxia COPD (chronic obstructive pulmonary disease) Hypertension Paroxysmal atrial fibrillation Type 2 diabetes mellitus Surgical History History of cataract surgery Family History Mother , age 79 of congestive heart failure Heart disease Social History Smoking Status: Former smoker Tobacco Type: Cigarettes Age Quit Using Tobacco: 70; packs per day: 1; Hx Alcohol Use: Yes Alcohol type: hard liquor Alcohol Intake Frequency Comment: 1 drink vodka per day Hx Substance Use: No Preferred Language: [place] Communication Ability: Effective 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 Beliefs That Will Affect Care: None Current Living Situation: Alone current occupational status: retired 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 Feels Safe at Home: Yes Assistive Devices: Oxygen - at Night Review of Systems Constitutional: no fever, no fatigue and no weakness Eyes: no diplopia, no eye pain and no worsening vision Ear, Nose, Mouth, Throat: no ear pain, no tinnitus, no hearing loss, no dizziness, no hoarseness and no dysphagia Respiratory: no cough and no dyspnea Cardiovascular: no chest pain, no palpitations and no lightheadedness Gastrointestinal: no abdominal pain, no nausea and no vomiting Genitourinary: no dysuria, no urinary frequency and no urinary incontinence Musculoskeletal: no back pain, no neck pain, no radicular pain, no joint pain and no myalgia Integumentary: no rash and no lesions Neurologic: no gait abnormality, no localized weakness, no generalized weakness, no tingling, no numbness, no tremor(s), no abnormal movements, no headache(s), no abnormal speech, no confusion and no memory loss Psychiatric: no depression, no irritability, no anxiety, no difficulty concentrating, no confusion and no hallucinations Endocrine: no fatigue and no flushing Hematologic / Lymphatic: no easy bleeding and no easy bruising Allergy / Immunological: no urticaria and no problem reported Exam (Neuro) Physical Exam: The patient is right-handed. The patient is awake, alert, and attentive. Speech is normal without any aphasia or dysarthria. She can name objects, repeat phrases, and has normal spontaneous speech. Mentation and thought processes are intact, with orientation to person, place and time, and normal fund of knowledge. Attention and concentration are normal. Mood and affect are normal and appropriate. General appearance and grooming are normal. Short and long-term memory are intact. The discs are sharp with positive venous pulsations bilaterally. There are no exudates, hemorrhages, or blood vessel changes seen. Pupils are 4 mm bilaterally and reactive to light. Extraocular eye muscles are intact without nystagmus. Visual acuity and visual bravo seem normal grossly to confrontation. There are no deficits to sensation in the face in all 3 distributions of the fifth cranial nerve bilaterally. Corneal reflexes are positive bilaterally. Facial strength and symmetry was normal bilaterally. Hearing seems normal to whisper and finger rub bilaterally. Palate moves well without asymmetry. There is normal sternocleidomastoid and trapezius (shoulder shrug) strength bilaterally. Tongue is midline with good strength bilaterally. Neck has a full range of motion without discomfort. There are no cervical bruits bilaterally. There are no cranial or ocular bruits. Heart is without murmur. There is a regular rhythm and rate. Cervical, thoracic, and lumbar spine are nontender to palpation. Gait is narrow based, with good arm swing, turns, and stance. stance is normal eyes open. With outstretched arms there is no drift. There are no resting, postural, or action tremors. There is no ataxia with finger to nose testing. There is good facility in the hands. No other abnormal involuntary movements are noted. Motor strength is 5/5 diffusely in the arms bilaterally including deltoids, biceps, triceps, brachioradialis, wrist flexors and extensors, grey percher, and intrinsic hand muscles. Motor strength is 5/5 diffusely in the legs bilaterally including hip flexors, quadriceps, hamstrings, gastrocnemius, tibialis anterior, tibialis posterior, and Peroneii muscles. Toe extensors are normal and there is good bulk in the extensor digitorum brevis muscles bilaterally. The limbs have good tone without rigidity or spasticity. There is no atrophy noted in the muscles. Muscle bulk is normal, there is no tenderness to palpation, no myotonia to percussion, and no fasciculations seen. Sensory examination is intact to touch and pin throughout all 4 limbs diffusely. Reflexes are 1/4 in the biceps, triceps, brachioradialis, quadriceps, and Achilles tendons bilaterally. There is no clonus bilaterally. Toes are downgoing with plantar stimulation bilaterally. Peripheral pulses are present and of normal quality distally in all 4 limbs. There is no peripheral edema noted in the limbs. Results & Data ([facility]) Vital Signs (Past 12 Hours) Vital Signs Temp Pulse Pulse Resp BP Pulse Ox 07/29/20 07:31 36.7 C 77 16 110/61 100 07/29/20 03:21 36.4 C L 80 16 118/64 100 07/29/20 00:00 83 07/28/20 23:19 36.5 C 82 17 97/60 L 97 PG Care Time/CCT Total # of Minutes Spent Total Time Spent with Patient: Total time spent is greater than 50% in coordination of care (as documented) at patient's floor/unit and/or counseling patient: Coding Level of Care Code 34710 Initial Inpt Care Lvl 3 Diagnoses TIA (transient ischemic attack) G45.9 Diplopia H53.2 Left carotid artery stenosis I65.22 Time Spent (min) 60
--- NOTE | 2020-07-29 12:00 | Pharmacy Report ---
Pharmacy Glycemic Short Note 2 - Date of Service July 29, 2020 - Glycemic Short BSG Results (Last 24 hours): 07/28/20 07/28/20 07/28/20 12:25 12:40 12:48 Glucose 264 H POC Glucose 220 H POC Glucose (other) 267 H 07/28/20 07/29/20 07/29/20 21:22 05:27 07:27 Glucose 54 L POC Glucose 146 H 64 L* POC Glucose (other) 07/29/20 07/29/20 07:56 11:29 Glucose POC Glucose 82 151 H POC Glucose (other) OUTPATIENT ANTIDIABETIC REGIMEN: * Glimepiride 2mg PO Daily * A1c reported as 11% in May * New A1c pending ASSESSMENT: * 80 year old female admitted with TIA, on prednisone at home * Pt is maintained on oral antidiabetic agent as an outpatient * Oral agents are not recommended for inpatient use d/t drug interactions, changing PO intake, and difficulty titrating for acute hyper/hypoglycemia. ADA recommends re-initiating outpatient oral agents 1-2 days prior to discharge if/when appropriate if they were held on admission. * Will hold oral agents for admission and utilize SQ basal bolus insulin regimen which is the recommended regimen for inpatient glycemic control. * Patient received 2 units of Novolog last night for carb coverage, and then had hypoglycemia, will loosen CF/CR and goal range at this time to prevent further hypoglycemia * No basal needed at this time PLAN FOR INPATIENT GLYCEMIC CONTROL: * Hold outpatient oral diabetes medications * Basal insulin * none at this time * Bolus insulin * NovoLog per scale ACHS or Q6hrs while NPO * Goal Range: Low 140 mg/dL - High 180 mg/dL * Correction Factor: 35 mg/dL/unit * Nutritional / Prandial insulin per carb ratio of 1 unit per 15 grams CHO consumed PLAN FOR DISCHARGE: * to be determined
[2020-07-29] MEDS ORDERED: STROKE PATIENT DISCHARGE STA (15:41)
--- NOTE | 2020-07-29 16:33 | Pharmacy Report ---
Pharmacist Stroke Counseling - Date of Service July 29, 2020 - Scope: Pharmacy has been consulted to provide medication discharge counseling for this patient admitted with [ischemic stroke] [hemorrhagic stroke] [transient ischemic attack] as per the Pharmacist Discharge Counseling for Stroke Patients Protoc . - Medications on Discharge: Home Medications Medication Instructions Recorded Confirmed Spiriva with HandiHaler 18 mcg INHALATION QAM 07/28/20 07/28/20 albuterol sulfate [ProAir HFA] 1 inh INHALATION QID PRN 07/28/20 07/28/20 budesonide-formoterol [Symbicort] 2 puff INHALATION BID 07/28/20 07/28/20 diltiazem HCl 240 mg PO QAM 07/28/20 07/28/20 glimepiride [Amaryl] 2 mg PO QAM 07/28/20 07/28/20 levothyroxine [Synthroid] 25 mcg PO DAILYBB 07/28/20 07/28/20 lisinopril-hydrochlorothiazide 1 tab PO QAM 07/28/20 07/28/20 [Zestoretic] prednisone 40 mg PO QAM 07/28/20 07/28/20 propafenone 150 mg PO BID 07/28/20 07/28/20 New Rx's Medication Instructions Recorded aspirin 81 mg PO QAM 30 Days #30 tab 07/29/20 clopidogrel [Plavix] 75 mg PO DAILY #30 tab 07/29/20 rosuvastatin [Crestor] 20 mg PO DAILY #30 tab 07/29/20 - Action: The above medications, specifically ones for stroke treatment/prophylaxis, have been reviewed in detail with the patient and/or patient farm loan representative(s) prior to discharge. This includes indication, common adverse reactions, drug interactions, and medication administration. Medication counseling has been employed using the teach-back method to ensure understanding. - Outcome: The patient and/or patient farm loan representative(s) have demonstrated understanding of the medications. Additional comments: Spoke with patient about the new medications that she was to be starting. I went over how she is to take them and any potential side effects she may experience. I told her to stop taking the Simvastatin due to Rosuvastatin being started. She expressed understanding and had no additional questions regarding her medications. Thank you for allowing pharmacy to be involved in the care of this patient. Please call [phone] with any additional questions
--- NOTE | 2020-07-29 17:00 | Discharge Summary ---
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 Sudden onset occurred while she was driving the car. She initially noticed double vision with both eyes open and resolved when she would close either eye. She managed to pull to the side of the road and got out of the car at which point she started feeling lightheaded (denies room spinning sensation) with nausea. She told her friend she just didn't feel right so her friend drove her to the emergency room. She feels the diplopia lasted for about 1 hour. She denies any lateralized weakness, change in speech or hearing. No infective symptoms such as sinus pain, shortness of breath, cough, fever, chills, urinary symptoms. In the ER she continued to feel nauseous which was resolved with promethazine. She has significant cardiovascular risk factors including former smoker, hypertension, hyperlipidemia and uncontrolled T2DM (most recent HbA1C 11 prior to starting treatment). In the ER CT head and angiograms where concerning for left carotid artery stenosis. She was referred to medicine for admission and ongoing management of vertigo (although patient denies any room spinning sensation to me), vomiting and hypomagnesemia. Her symptoms have all resolved on admission. Admission Exam Per Admitting Provider Constitutional: WD/WN, vitals as above Eyes: PERRL, conjunctivae normal, anicteric sclerae EOM intact bilaterally (without diplopia); no nystagmus ENMT: external ear and nose normal, oropharynx normal Neck: trachea midline Respiratory: normal respiratory effort, lungs clear to auscultation Cardiovascular: RRR, no murmur, no edema Gastrointestinal: normal bowel sounds, soft, nontender, no hepatosplenomegaly Musculoskeletal: no cyanosis or clubbing, extremities motor strength 5/5 Skin: no rashes, warm and dry Neurologic: moves all extremities and awake; not confused Motor/Sensory: no tremor and no pronator drift Cranial Nerves: PERRL, EOM intact bilaterally, normal facial strength, tongue midline, normal hearing, able to rotate head bilaterally, able to elevate shoulders bilaterally, no nystagmus and symmetric palate elevation Psychiatric: A+Ox3, euthymic affect Principal Diagnosis TIA Discharge Exam General: well-appearing, no acute distress, laying prone but propped up on her elbows, texting a friend HEENT: NCAT, face mildly puffy, no discoloration CV: regular rhythm, no murmur appreciated, heart sounds a bit distant Resp: lung sounds diminished but equal bilaterally, no wheezing appreciated, expiratory phase not prolonged Abd: patient declined exam Ext: distal pulses 2+ and equal BL Neuro: pupils equal and reactive to light bilaterally, EOM intact, no facial droop, no focal neurologic deficits, speech fluent and clear Psych: AOx3, euthymic, pleasant, interactive, good mood Discharge Data Allergies Allergy/AdvReac Type Severity Reaction Status Date / Time No Known Allergies Allergy Unverified 07/28/20 13:57 Consultations 07/28/20 15:07 ED Decision to Admit Stat 07/28/20 20:33 Consult Neurology Routine Ordered Studies 07/28/20 12:36 CT angio head w con Stat CT angio neck with con Stat CT head/brain wo con Stat 07/28/20 15:31 MR brain wo con Urgent Hospital Course (1) TIA (transient ischemic attack): In the ED, CT head and CTA were negative for acute ischemia or hemorrhage, though notable for left carotid artery stenosis of 90%. Patient was admitted for management of nausea, vomiting, and hypomagnesemia. Magnesium was repleted b efore she arrived on the floor. Shortly after admission, all symptoms resolved. Neurology was consulted and recommended plavix therapy as well as outpatient vascular surgery follow-up. Symptoms were consistent with TIA as a consequence of microvascular disease. Patient was discharged on hospital day #1, asymptomatic and in stable condition, with close PCP and vascular surgery follow-up planned. Patient was prescribed 30 days of DAPT with ASA and plavix, with instruction to discontinue ASA at 30 days but continue plavix. Patient's medium-intensity statin (simvastatin) was also replaced with a high-intensity statin (crestor 20mg) upon discharge. Total Time Total Time Spent Total Time Spent (In Minutes): Less than 30 Discharge Plan Discharge Items Patient Disposition: Home - Self-Care Reason For Visit: STROKELIKE SYMPTOMS, VERTIGO Discharge Diagnosis: TIA Condition on Discharge: Good Activity: Per Instructions section Non-emergency contact: Primary Care Provider Call non-emergency contact if: you have any medication questions Follow-up/Referrals: PCP,NO [Primary Care Provider] - Diet: Carb Consistent or DM2 and Heart Healthy Addtl Attending Provider Instructions: You were admitted for transient ischemic attack (TIA). Imaging was performed to evaluate for stroke, and signs of an ongoing acute stroke were not seen. It is critical that you follow up with your primary care physician as soon as you are able to, in order for them to help coordinate ongoing care. Please make an appointment with them when you are able to. We also recommend being evaluated by a vascular surgeon. This is very important, but does not need to be done urgently; it is acceptable for you to see a vascular surgeon once you return back home to [place]. Please contact your primary care physician if you need help finding and making an appointment with a vascular surgeon. We have sent two new medications to your pharmacy: -Rosuvastatin 20mg tablet: take one tablet daily by mouth. -Clopidogrel (also known as plavix) 75mg tablet: take one tablet daily by mouth. Make the following changes to your previous medication regimen: -Aspirin 81mg tablet: continue taking one tablet daily by mouth for 30 days (07/30 - 08/29). From 08/30 onward, stop taking aspirin. -Simvastatin: one of your new medicines we prescribed (rosuvastatin) replaces simvastatin. You no longer need to take simvastatin. Please continue taking all other medicines you were taking before your admission to [facility]. Thank you for allowing us to participate in your care. Pending Studies at Discharge: No Stand-Alone Forms: Medications to Prevent Stroke, [facility], Smoking Cessation Medications and DC Order Prescriptions: New aspirin 81 mg Tablet,Delayed Release (Dr/Ec) 81 mg PO QAM 30 Days Qty: 30 RF: 0 clopidogrel [Plavix] 75 mg tablet 75 mg PO DAILY Qty: 30 RF: 2 rosuvastatin [Crestor] 20 mg tablet 20 mg PO DAILY Qty: 30 RF: 2 Continued propafenone 150 mg tablet 150 mg PO BID RF: 0 prednisone 10 mg tablet 40 mg PO QAM RF: 0 glimepiride [Amaryl] 2 mg tablet 2 mg PO QAM RF: 0 levothyroxine [Synthroid] 25 mcg tablet 25 mcg PO DAILYBB RF: 0 lisinopril-hydrochlorothiazide [Zestoretic] 20-25 mg tablet 1 tab PO QAM RF: 0 Spiriva with HandiHaler 18 mcg capsule, w/inhalation device 18 mcg INHALATION QAM RF: 0 budesonide-formoterol [Symbicort] 160-4.5 mcg/actuation HFA aerosol inhaler 2 puff INHALATION BID RF: 0 diltiazem HCl 240 mg Capsule,Ext.Rel 24h Degradable 240 mg PO QAM RF: 0 albuterol sulfate [ProAir HFA] 90 mcg/actuation Hfa Aerosol Inhaler 1 inh INHALATION QID PRN (Reason: Shortness Of Breath Or Wheezing) RF: 0 Discontinued simvastatin [Zocor] 20 mg tablet 20 mg PO HS RF: 0 Discharge Orders: Discharge Order (Routine); Ordered 07/29/20 Ordered By: Chino Luu Admission Data Admit Date/Time: 07/28/20 15:37 Attending Provider: Jacky Bowman Admit Provider: Luiz Haines Primary Care Provider: PCP,NO Other Providers: Luiz Haines ; Jose R Hernandez Other Interventions: Discharge Summary Assessment (RN) Last Done: 07/29/20 16:13 Supervising Physician Co-Signing Physician Notes I personally examined the patient and verified all shay points of history and exam, discussed case, and agree with decision making with Dr Luu. Feeling better, visual disturbances have gone. Feels up to going home. Case discussed with neurology, input greatly appreciated. Vitals noted, in general she is awake and alert pleasant no distress. HEENT normocephalic atraumatic mucous membranes moist. Breathing unlabored no accessory muscle use good effort. Skin shows no rashes no pallor or icterus. Neuro shows no focal neuro deficits at this time. Labs and diagnostics noted TIAshe shows risks for intracranial small vessel disease (copious vascular risk factors), large vessel embolic (carotid stenosis) and central embolic (prior history of A. fib)but I agree wholeheartedly with neurology that the focal area that seems to have been involved, and its very transient nature, makes intracranial atherosclerotic small vessel disease far and away the most likely culprit. ---> Secondary risk reductionaspirin plus Plavix for a month then switch to Plavix alone. Switch simvastatin to rosuvastatin (she noted myalgias with atorvastatin before) not really to lower cholesterol further, but for the benefit gleaned from a moderate intensity statin that cannot be otherwise obtained with regular medications ----> As it relates to her carotid stenosis, while I do not believe it to be culprit in her current TIA, it is tight enough to warrant evaluation for endarterectomy even as an asymptomatic lesion. She will do this when she gets home ----> As it relates to her prior atrial fibrillation, we discussed that it is a fairly limited "definition" that would lend to defining atrial fibrillation is just an isolated episode, and while it is quite a while ago, her context suggests that she would not have met said definitions. Because of this, she likely would also benefit from anticoagulationbut we discussed since it does not appear to have been directly causative for her current TIA, this would be better discussed with physicians who know her better back home. A1c is still pending She expressed good understanding of all of this, stable for home, otherwise as above. Resident Activity Tracking Resident Involvement: Resident Care Provided Care Provided: Adult Hospital Medicine
--- NOTE | 2020-07-29 18:37 | Billing Data ---
Date of Service July 29, 2020 Coding Level of Care Code 11453 OBS Care - Discharge
[2020-07-30 07:15] LABS: Estimated Average Glucose 229 mg/dl; Hemoglobin A1C 9.6 % (4.5-5.6)
== END 2020-07-29 17:15 | disposition home or self-care (01) ==
LOC: 2E 12:22 → ED 12:22 → SUATTDRO 15:37 → 2E 16:35